=== PATIENT | male | born 2000 | race Caucasian/White ===

== ENCOUNTER 2019-12-29 10:01 | Emergency (ER) | payer OTHER, SELFPAY ==
[2019-12-29 10:52] VITALS: BP 146/73; PULSE 75; RESP 16; TEMP 37.2; O2SAT 97; BMI 23.7
--- NOTE | 2019-12-29 11:22 | ED.URI ---
HPI - URI/Sore Throat General Chief Complaint: Upper Respiratory Symptoms Stated Complaint: covid symptoms [phone] Time Seen by Provider: 12/29/19 11:17 Source: patient Mode of arrival: ambulatory Limitations: no limitations History of Present Illness HPI Narrative: Nasal congestion, cough, subjective fevers x 3 days. Exposed to COVID + patient 4 days ago MD elicited complaint: fever, cough and nasal congestion Onset (ago): day(s) Consistency: constant Severity: mild Description of mucous: clear Able to tolerate fluids by mouth: Yes Exacerbating factors: nothing Context: sick contacts (COVID + exposure ) Associated symptoms: fever, chills, nasal congestion and cough Treatments prior to arrival: none Related Data Allergies Allergy/AdvReac Type Severity Reaction Status Date / Time No Known Allergies Allergy Unverified 12/11/19 16:51 [No Known Allergies*] Review of Systems Review of Systems: Yes all other systems are reviewed and are negative Constitutional: Constitutional: Reports chills, Reports fever(s), Denies headache(s) and Denies weakness Eyes: Eyes: Reports no additional eye complaints and Denies change in vision ENT: Reports system reviewed and no additional complaints, except as documented, Denies headache(s) and Reports nasal congestion Cardiovascular: Cardiovascular: Reports no additional cardiovascular complaints, Denies chest pain, Denies leg edema and Denies dyspnea Respiratory: Respiratory: Reports no additional respiratory complaints, Reports cough and Denies dyspnea Gastrointestinal: Gastrointestinal: Reports no additional gastrointestinal complaints, Denies abdominal pain, Denies diarrhea, Denies nausea and Denies vomiting Genitourinary: Genitourinary: Reports no additional male genitourinary complaints Musculoskeletal: Musculoskeletal: Reports no additional musculoskeletal complaints, Denies arthralgias, Denies joint swelling and Denies tingling Integumentary/Breasts: Skin/Breast: Reports system reviewed and no additional complaints, except as docu and Denies rash Neurologic: Reports system reviewed and no additional complaints, except as documented, Denies Abnormal speech present, Denies headache(s), Denies focal weakness, Denies Sensory deficit (Neuro), Denies tingling, Denies paresthesias and Denies weakness PMFSH Past Medical History Attestation statement: The following information was validated with the patient. Source: obtained from family Medical History Asthma Collar bone fracture Social History Social History Alcohol intake: never Smoking Status: Never smoker Use of substances other than those prescribed or required for medical reasons: No Advance Directives: No Advance Directives Information Provided: No Physical Exam Vital Signs and I&O and Narrative: Vital Signs and I&O: Vital Signs Temp 99.0 F 12/29/19 10:52 Pulse 75 12/29/19 10:52 Resp 16 12/29/19 10:52 BP 146/73 H 12/29/19 10:52 Pulse Ox 97 12/29/19 10:52 Intake & Output 12/28/19 12/29/19 12/29/19 18:59 06:59 18:59 Weight 81.647 kg Body Mass Index 23.7 Const: General: cooperative, healthy appearing, comfortable and no acute distress Orientation/consciousness: patient oriented x3 HENMT: Head: Yes normal to inspection Ears: hearing grossly normal bilaterally General nose exam: Normal external nose present Face and sinus: Yes normal facial exam Mouth: Normal oral and palatal mucosa present Throat: Yes posterior oropharynx normal Eyes: General: appearance normal, both eyes and all related structures Pupils: Equal, round and reactive pupils present Neck: Neck: Yes normal visual inspection Chest: Chest palpation & inspection: normal inspection of the chest Resp: Effort & Inspection: normal respiratory effort Auscultation: clear to auscultation bilaterally Cardio: Palpation: normal PMI Rate: regular rate Rhythm: regular rhythm GI: Inspection: Yes normal to inspection Palpation (GI): Soft to palpation and nontender Back/Spine/Pelvis: Thoracic/Lumbar Spine: thoracic and lumbar spine normal to inspection Skin: General skin exam: no rashes or lesions noted Neuro: General: patient oriented x3 Cranial nerves: Yes Equal, round and reactive pupils present Cognition (Neuro): normal cognition Speech: No Abnormal speech present Gait exam (Neuro): Normal gait present Motor exam (neuro): 5/5 motor strength present throughout Sensory Exam: No Sensory deficit (Neuro) Extrem: General: Yes normal to inspection MDM - URI/Sore Throat MDM Narrative Medical decision making narrative: exam c/w with viral syndrome. Had covid exposure so COVID testing sent. Well appearing, stable vital signs. Reviewed worrisome signs/symptoms with patient and when to return to ED. comfortable with discharge home Discharge Plan Discharge Clinical Impression: Viral infection Patient Disposition: Home, Self-Care Instructions: Viral Syndrome (ED) Additional Instructions: We will call you in 1-2 days with your test results Motrin or Tylenol if able as needed for pain or fever Referrals: Physician,Unknown [Primary Care Provider] - 5 days Interventions: ED Discharge Assessment Last Done: 12/29/19 11:48 Discharge Date/Time: 12/29/19 11:49
== END 2019-12-29 11:49 | disposition home or self-care (01) ==
PROVIDERS: Nurse Practitioner Family; Emergency Provider Internal Medicine
DX: B34.9 Viral infection, unspecified (principal); R05 Cough; Z20.828 Contact with and (suspected) exposure to other viral communicable diseases
CPT/HCPCS: 36415; 87635; 99283

== ENCOUNTER 2020-06-11 11:15 | Outpatient (REF) | payer OTHER, SELFPAY | END 2020-06-11 11:16 | disposition home or self-care (01) | LOC: HO.LAB 11:15 | PROVIDERS: Visit Provider Internal Medicine | DX: Z20.822 Contact with and (suspected) exposure to COVID-19 (principal) | CPT/HCPCS: 36415; C9803; U0003; U0005 ==

== ENCOUNTER 2021-11-10 14:04 | Outpatient (REF) | payer OTHER, SELFPAY ==
[2021-11-10 14:41] LABS: Hematocrit 45.3 % (42.0-52.0); Hemoglobin 16.5 g/dl (14.0-18.0); Mean Corpuscular HGB Conc 36.4 g/dl (31.0-36.0); Mean Corpuscular Hemoglobin 32.3 pg (27.0-33.0); Mean Corpuscular Volume 88.6 fL (80.0-98.0); Mean Platelet Volume 9.3 fL (9.4-12.4); Platelet Count 220 X10*3/uL (160-400); Red Blood Count 5.11 X10*6/uL (4.60-5.80); Red Cell Distribution Width 11.4 % (11.0-16.0); White Blood Count 4.9 X10*3/uL (4.8-10.8)
[2021-11-10 15:37] LABS: Sickle Cell Scr NEGATIVE (NEGATIVE)
== END 2021-11-10 14:05 | disposition home or self-care (01) ==
LOC: HO.LAB 14:04
PROVIDERS: PCP Physician Assistant; Visit Provider Physician Assistant
DX: Z02.5 Encounter for examination for participation in sport (principal); Z13.0 Encounter for screening for diseases of the blood and blood-forming organs and certain disorders involving the immune mechanism
CPT/HCPCS: 36415; 85027; 85660

== ENCOUNTER 2021-12-01 10:07 | Outpatient (REF) | payer OTHER, SELFPAY ==
--- NOTE | ~2021-12-01 | XR_ITS ---
EXAMINATION: XR ANKLE, LEFT CLINICAL INFORMATION: Pain left ankle COMPARISON: None TECHNIQUE: AP, lateral, and mortise views of the left ankle. FINDINGS: The bones and soft tissues are normal. No fracture. Alignment is anatomic. Joint spaces are maintained. No joint effusion. There is mild dorsal distal foot soft tissue swelling. XR/XR ankle LT 2V IMPRESSION: Mild dorsal distal foot soft tissue swelling. No visible acute fracture or dislocation seen.
--- NOTE | ~2021-12-01 | XR_ITS ---
EXAMINATION: XR FOOT, LEFT CLINICAL INFORMATION: Pain left foot COMPARISON: None TECHNIQUE: AP, lateral, and oblique views of the left foot. FINDINGS: The bones and soft tissues are normal. No fracture. Alignment is anatomic. Joint spaces are maintained. XR/XR foot LT 2V IMPRESSION: Unremarkable left foot exam.
== END 2021-12-01 10:08 | disposition home or self-care (01) ==
LOC: HO.XRAY 10:07
PROVIDERS: PCP Physician Assistant; Visit Provider Nurse Practitioner Family
DX: M79.672 Pain in left foot (principal)
CPT/HCPCS: 73600; 73620

== ENCOUNTER 2022-11-10 13:53 | Outpatient (AMB) | payer OTHER, SELFPAY ==
--- NOTE | 2022-11-10 14:14 | MHC.OFFWIV ---
Intake Vital Signs 11/10/22 14:18 Height 6 ft 1 in Weight 195 lb BMI 25.7 BP 122/70 Blood Pressure Location Lt brachial Position Sitting Pulse 78 Pulse Source Pulse Oximeter Temp 98.2 F Temp Source Temporal Artery Scan Pulse Oximetry (%) 98 Oxygen Delivery Method Room Air Intake Visit Reasons: EP Asthma/Sports PE Intake Note: Pt is here requesting a physical to participate in school sports. Patient Tobacco Use Status: Never used Tobacco Allergies No Known Allergies [No Known Allergies*] Allergy (Verified 12/01/21 10:03) Do you need a note to return to daycare/school/sports/work: No HPI HPI Comments History of Present Illness Details This is a 21-year-old male with past medical history significant for mild intermittent asthma who presents to the office today for an asthma check and sports physical. Patient plays soccer at [employer]. He has a history of mild intermittent asthma but he denies any breathing difficulties recently. He is able to perform heavy physical exertion without difficulty but does occasionally utilize his albuterol inhaler prior to heavy physical exertion. He has a rescue albuterol inhaler available to him if he needs it. He denies any chest pain on exertion. He reports a history of a concussion in 2011 but has no post concussive symptoms. He denies any headaches, photophobia/phonophobia, or nausea/vomiting. He denies any recent head injury/trauma. He denies any abdominal pain or nausea/vomiting/diarrhea. He denies any recent illnesses. [facility] Medical History (Updated 01/25/22 @ 12:40 by Carmine Santiago PA-C) Asthma Collar bone fracture Surgical History History of open reduction and internal fixation (ORIF) procedure Family History Father No problems noted. Mother Hypertension Social History Alcohol intake: never Patient Tobacco Use Status: Never used Tobacco Review of Systems Const All systems reviewed & are unremarkable except as noted in HPI and below Reports no additional complaints Eyes Reports no additional complaints ENT Reports no additional complaints Card Reports no additional complaints and Reports dyspnea on exertion (occasional, with heavy exertion) Resp Reports no additional complaints and Reports dyspnea on exertion (occasional, with heavy exertion) GI Reports no additional complaints Reports no additional complaints Musc Reports no additional complaints Skin/Breast Reports system reviewed and no additional complaints, except as documented Neuro Reports no additional complaints and Denies Abnormal speech present Psych Reports no additional complaints Endo Reports no additional complaints Gerald/Lymph Reports no additional complaints Aller/Immun Reports no additional complaints Physical Exam Vital Signs: Last Vital Signs Temp 98.2 F 11/10/22 14:18 Pulse 78 11/10/22 14:18 BP 122/70 11/10/22 14:18 Pulse Ox 98 11/10/22 14:18 Oxygen Delivery Method Room Air 11/10/22 14:18 BMI result Body Mass Index 25.7 Const General: cooperative, healthy appearing, comfortable, no acute distress, well developed, alert, awake and Physically active Nutritional Appearance: well nourished and not obese Orientation/consciousness: patient oriented x3 Limitations: no limitations HEENT Head: Yes normal to inspection, No Vuong's sign and No raccoon eyes Ears: hearing grossly normal bilaterally General nose exam: Normal external nose present Face and sinus: Yes normal facial exam Mouth: Normal oral and palatal mucosa present Throat: Yes posterior oropharynx normal Eyes General: appearance normal, both eyes and all related structures Visual Rai: normal visual rai by confrontation Alignment and Position: alignment normal Periorbital: periorbital findings normal Eyelids: Yes eyelids normal Conjunctivae: conjunctivae normal Sclerae: sclerae normal Pupils: Equal, round and reactive pupils present EOM: EOMs intact bilaterally Direct Ophthalmoscopy: normal light reflex and no photophobia Neck Neck: Yes normal visual inspection, Yes full ROM, Yes no lymphadenopathy and Yes no meningeal signs Thyroid: Thyroid normal Chest Chest palpation & inspection: normal inspection of the chest Resp Effort & Inspection: normal respiratory effort and no respiratory distress Auscultation: clear to auscultation bilaterally, no crackles, no rales, no rhonchi and no wheezes Cardio Jugular venous distension: no JVD Rate: regular rate Rhythm: regular rhythm Heart sounds: no gallops, no murmurs and no rubs Peripheral pulses: Peripheral pulses 2+ throughout GI Inspection: No distended Palpation (GI): Soft to palpation and nontender Auscultation: normal bowel sounds General: Yes no CVA tenderness Back/Spine/Pelvis Back: no CVA tenderness Thoracic/Lumbar Spine: thoracic and lumbar spine normal to inspection Skin General skin exam: no rashes or lesions noted Trauma: no lacerations or abrasions Wounds: no wounds Neuro General: patient oriented x3, gait normal, moves all extremities, Normal light touch and pain sensation, no meningeal signs and deep tendon reflexes 2+ bilaterally Cranial nerves: Yes CN's II-XII intact bilaterally, Yes Facial sensation intact/muscles of mastication intact, Yes Equal, round and reactive pupils present and Yes Bilaterally intact EOM present Cognition (Neuro): normal cognition Speech: No Abnormal speech present Gait exam (Neuro): Normal gait present Motor exam (neuro): 5/5 motor strength present throughout Extrem General: Yes normal to inspection, Yes full ROM and Yes no clubbing, cyanosis or edema Psych Appearance: grossly normal Mental Status: mental status grossly normal Office Procedures EKG Details: Sinus bradycardia, early repolarization. No acute ischemic changes. No ST-T wave changes. EKG is completely unchanged from prior EKG from 11/14. [id number], Complete Assessment & Plan Assessment & Plan (1) Mild intermittent asthma: Code(s): J45.20 - Mild intermittent asthma, uncomplicated Plan: This is a 21-year-old male with past medical history significant for mild intermittent asthma who presented to the office today for an asthma check and sports physical. Comprehensive physical exam was benign and within normal limits. He is in no acute respiratory distress and he has no evidence of abnormal/adventitious breath sounds on physical examination. There are no active concerns other than mild dyspnea with heavy exertion. This is likely in the setting of his mild intermittent asthma. Recommended pre-treating with his albuterol inhaler prior to heavy exertion. Patient should have rescue inhaler available to him if he needs it. If he feels as though this dyspnea is limiting his physical activity, he should follow-up with his primary care physician for possible pulmonology referral. EKG obtained shows sinus bradycardia with early repolarization, which is completely unchanged from prior EKG obtained in 10/2021. Bradycardia and early repolarization are normal variants in young healthy athletes and patient is asymptomatic without chest pain, palpitations, or lightheadedness/dizziness. There are no acute ischemic changes. Patient also reports a history of concussion in 2011. He denies any post concussive symptoms and has not had any recent head trauma or injuries. A comprehensive neurological exam is nonfocal and within normal limits. 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 Patient reports having an albuterol inhaler at home in again this should be available to the patient during heavy exertion. This was discussed in detail with the patient and he verbalized his understanding. Orders: Orders AMB EKG-In Office Today R06.02 - Shortness of breath Coding Level of Care Code Est Pt Level 4 (04732) Diagnoses Mild intermittent asthma J45.20 CPT Codes EKG - CPT: 75734-[id number], Complete ([id number])
[2022-11-10 14:18] VITALS: BP 122/70; PULSE 78; TEMP 36.8; O2SAT 98; BMI 25.7
== END 2022-11-10 15:17 | disposition home or self-care (01) ==
PROVIDERS: PCP Physician Assistant; Visit Provider Physician Assistant Medical
DX: J45.20 Mild intermittent asthma, uncomplicated (principal)
CPT/HCPCS: 93000; 99214

== ENCOUNTER 2023-11-01 14:21 | Outpatient (AMB) | payer OTHER, SELFPAY ==
--- NOTE | 2023-11-01 14:24 | A.OFFPC_ITS ---
Vital Signs 11/01/23 14:31 Height 6 ft 1 in Weight 215 lb 13.321 oz BMI 28.5 BP 136/84 Blood Pressure Location Lt brachial Position Sitting Pulse 84 Pulse Source Pulse Oximeter Pulse Oximetry (%) 97 Oxygen Delivery Method Room Air Intake Visit Reasons: Annual PE Intake Note: The patient is here today for a physical exam and to complete the [facility] PE form for sports clearance. Accompanied by: Self / Same As Patient Allergies No Known Allergies [No Known Allergies*] Allergy (Verified 11/01/23 14:51) Medication List - Last Reconciled 11/01/23 by Carmine Santiago PA-C No Known Home Meds Tobacco use date assessed: 11/01/23 Dental Screening Dental Screen Date: 11/01/23 Did you have a dental visit in the last 12 months?: Yes Did you have a dental problem in the last 6 months where you did not have access to dental care?: No Was dental information given to patient?: Patient has dentist HPI Annual PE HPI Details Patient is a 22-year-old male here today an annual physical. Patient has a past medical history significant for GERD. Otherwise healthy 22-year-old male. Will be starting school at [employer] in the fall. Vaccine : UTD with COVID , Tdap , Considering flu this fall [facility] Medical History Collar bone fracture Asthma Surgical History History of open reduction and internal fixation (ORIF) procedure Family History Father No problems noted. Mother Hypertension Social History (Updated 11/01/23 @ 14:54 by Carmine Santiago PA-C) Housing: House Alcohol intake: current Alcohol intake frequency: a few times a month Alcohol type: beer Patient Tobacco Use Status: Never used Tobacco e-Cigarette/Vaping Use: Never Used service: No Current occupational status: student Cognitive needs: No Hearing needs: No Questionnaire PHQ-9 Over the last 2 weeks, how often have you been bothered by any of the following problems? 1. Little interest or pleasure in doing things: not at all 2. Feeling down, depressed, or hopeless: not at all 3. Trouble falling or staying asleep, or sleeping too much: not at all 4. Feeling tired or having little energy: not at all 5. Poor appetite or overeating: not at all 6. Feeling bad about yourself - or that you are a failure or have let yourself or your family down: not at all 7. Trouble concentrating on things, such as reading the newspaper or watching television: not at all 8. Moving or speaking so slowly that other people could have noticed. Or the opposite - being so fidgety or restless that you have been moving around a lot more than usual: not at all 9. Thoughts that you would be better off or of hurting yourself in some way: not at all Total score: 0 Depression Screening Interpretation: Negative Depression Screening Done: Yes 14886 - PHQ-9 Billing: Yes Source: Developed by Drs. Roger Piña, Latosha Hardin, Wellington Lau and colleagues, with an educational ana from [employer]. Thrive Questionnaire Date Thrive assessed: 11/01/23 I am a: Patient What is your living situation today?: I have a steady place to live Within the past 12 months, did the food you bought not last and you didn't have the money to get more?: Never true Within the past 12 months, did you worry whether your food would run out before you got money to buy more?: Never true Do you have trouble paying for medicines?: No Do you have trouble getting transportation to medical appointments?: No Do you have trouble paying your heating and electricity bill?: No Do you have trouble taking care of your child, family member or friend?: No Do you have trouble with day-to-day activities such as bathing, preparing meals, shopping, managing finances, etc.?: No Are you currently unemployed and looking for a job?: No Are you interested in more education?: No Please select the resources that you would like help with: None Currently or been in a relationship where the following occur: No concerns reported THRIVE Score: 0 AUDIT C Alcohol Use Questionnaire (AUDIT-C) 1. How often do you have a drink containing alcohol?: Monthly or less 2. How many drinks containing alcohol do you have on a typical day when you are drinking?: 3 or 4 3. How often do you have six or more drinks on one occasion?: Never Total Score: 2 RISHI-7 AMB Questionnaire RISHI-7 Date RISHI - 7 assessed: 11/01/23 Feeling nervous, anxious, or on edge: 0 = Not at all Not being able to stop or control worryin = Not at all Worrying too much about different things: 0 = Not at all Trouble relaxin = Not at all Being so restless that it is hard to sit still: 0 = Not at all Becoming easily annoyed or irritable: 0 = Not at all Feeling afraid as if something awful might happen: 0 = Not at all Total RISHI-7 score (0-4 normal; 5-9 mild; 10-14 moderate; 15-21 severe): 0 Source: Developed by Drs. Roger Piña, Latosha Hardin, Wellington Lau and colleagues, with an educational ana from [employer]. RISHI-7 Assessment Billing RISHI-7 Assessment Tool: RISHI-7 Assessment 55284 Review of Systems Const Denies body aches, Denies chills, Denies excessive sweating, Denies fatigue, Denies fever(s) and Denies headache(s) Eyes Denies blurry vision ENT Denies dysphagia, Denies vertigo, Denies dizziness, Denies headache(s), Denies hearing loss and Denies tinnitus Card Denies chest pain, Denies chest pain with activity, Denies syncope, Denies irregular heart rhythm and Denies dyspnea Resp Denies chest congestion, Denies cough, Denies hemoptysis, Denies dyspnea and Denies wheezing GI Denies abdominal pain, Denies melena, Denies hematochezia, Denies coffee ground emesis, Denies dysphagia, Denies diarrhea, Denies nausea and Denies vomiting Denies difficulty urinating, Denies dysuria, Denies urinary frequency, Denies urinary hesitancy and Denies urinary urgency Musc Denies arthralgias, Denies limited range of motion, Denies muscle cramps and Denies muscle weakness Skin/Breast Denies rash and Denies skin ulcer Neuro Denies Abnormal speech present, Denies confusion, Denies vertigo, Denies dizziness, Denies syncope, Denies headache(s), Denies memory loss and Denies seizure-like activity Psych Denies anxiety, Denies confusion, Denies depression, Denies memory loss, Denies panic attacks and Denies paranoia Endo Denies excessive sweating, Denies fatigue, Denies flushing, Denies polydipsia and Denies polyuria Aller/Immun Denies wheezing Physical exam (Primary Care) Vital Signs: Last Vital Signs Pulse 84 11/01/23 14:31 BP 136/84 11/01/23 14:31 Pulse Ox 97 11/01/23 14:31 Oxygen Delivery Method Room Air 11/01/23 14:31 BMI result Body Mass Index 28.5 Tobacco/Smoking Status: Tobacco use Status Tobacco use date assessed 11/01/23 11/01/23 14:42 Patient Tobacco Use Status Never used Tobacco 11/01/23 14:54 e-Cigarette/Vaping Use Never Used 11/01/23 14:54 PHQ-9: PHQ-9 Score PHQ-9: Total score 0 11/01/23 14:54 Depression Screening Interpretation: Negative Thrive Assessment: Date of Thrive Assessment Date Thrive assessed 11/01/23 11/01/23 14:42 Currently or been in a relationship where the following occur: No concerns reported Const General: cooperative, comfortable, no acute distress, alert and awake; No confusion Orientation/consciousness: oriented to person, oriented to place, patient oriented x3 and No confusion HENMT Head: Yes normocephalic Ears: external ears normal and TM's normal bilaterally Face and sinus: No sinus tenderness Mouth: Normal oral and palatal mucosa present and tongue normal Teeth and gingiva: dentition normal and gingiva normal Throat: Yes posterior oropharynx normal, Yes tonsils normal and Yes uvula midline Eyes Conjunctivae: conjunctivae normal Sclerae: sclerae normal Pupils: Equal, round and reactive pupils present EOM: EOMs intact bilaterally Direct Ophthalmoscopy: No no photophobia Neck Neck: Yes no lymphadenopathy, No tender and Yes no JVD Thyroid: Thyroid normal Carotids: no bruits Chest Chest palpation & inspection: no tenderness Resp Effort & Inspection: normal respiratory effort, no audible wheezes, not labored and no stridor Auscultation: no crackles, no rales, no rhonchi and no wheezes Cardio Jugular venous distension: no JVD Rate: regular rate, not bradycardic and not tachycardic Rhythm: regular rhythm Bruits: no carotid bruits Peripheral pulses: Peripheral pulses 2+ throughout GI Inspection: Yes normal to inspection, No abdominal wall ecchymosis and No visible herniation Palpation (GI): Soft to palpation, nontender, no guarding, not rigid and No hepatosplenomegaly present Auscultation: normoactive bowel sounds General: Yes no CVA tenderness Back/Spine/Pelvis Back: no CVA tenderness and No back tenderness Cervical Spine: cervical ROM normal Thoracic/Lumbar Spine: thoracic and lumbar spine normal to inspection, straight leg raise negative bilaterally, No thoraco-lumbar ROM limited and No lumbar spinal tenderness Skin Lesions: no lesions Rashes: no rashes Wounds: no wounds Neuro General: oriented to person, oriented to place, patient oriented x3, CN's II-XI intact bilaterally and No confusion Cranial nerves: Yes Equal, round and reactive pupils present and Yes Normal accommodation reflex present Cognition (Neuro): normal cognition Speech: No Abnormal speech present Gait exam (Neuro): Normal gait present Motor exam (neuro): 5/5 motor strength present throughout Extrem Right upper extremity: full ROM; no cyanosis Left upper extremity: full ROM; no cyanosis Right lower extremity: no edema Left lower extremity: no edema Psych Appearance: grossly normal Mental Status: mental status grossly normal Affect: normal affect Attitude: cooperative Thought process: Normal thought process present Assessment and Plan Assessment & Plan (1) Annual physical exam: Code(s): Z00.00 - Encounter for general adult medical examination without abnormal findings (2) Screening for diabetes mellitus (DM): Code(s): Z13.1 - Encounter for screening for diabetes mellitus Orders: Orders Comprehensive [place]. Panel Fast Today Z13.1 - Encounter for screening for diabetes mellitus Complete Blood Count no Diff Today Z13.1 - Encounter for screening for diabetes mellitus Coding Level of Care Code Est Pt Prev Care 18-39y(11477) Diagnoses Annual physical exam Z00.00 Screening for diabetes mellitus (DM) Z13.1 Additional Codes RISHI-7 Assessment Billing - RISHI-7 Assessment Tool: IRSHI-7 Assessment 88225 ([id number])
[2023-11-01 14:31] VITALS: BP 136/84; PULSE 84; O2SAT 97; BMI 28.5
== END 2023-11-01 15:59 | disposition home or self-care (01) ==
PROVIDERS: PCP Physician Assistant; Visit Provider Physician Assistant
DX: Z00.00 Encounter for general adult medical examination without abnormal findings (principal); Z13.1 Encounter for screening for diabetes mellitus
CPT/HCPCS: 99395

== ENCOUNTER 2024-06-26 18:05 | Emergency (ER) | payer OTHER, SELFPAY ==
--- NOTE | ~2024-06-26 | CT_ITS ---
CLINICAL HISTORY: L sided tonsillar swelling CT soft tissue neck with contrast Comparison: None Findings: Left tonsillar edema and hypertrophy noted. Multilocular small fluid collections are identified. Ill-defined fluid densities are also noted. To well-defined fluid collections consistent with abscesses. These measure 1.5 and 1.3 cm. This is in the anterior inferior aspect. Right tonsil is unremarkable. Reactive adenopathy in the neck. Adenoids and epiglottis are within normal limits. There is no prevertebral soft tissue swelling or fluid. Bilateral parotid and submandibular glands unremarkable. No foreign bodies are demonstrated. Visualized upper lungs and sinuses are clear. No acute bony abnormalities demonstrated. Impression: Left tonsillar hypertrophy with small abscesses This document has been electronically signed by: Julius Almaguer MD on 06/26/2024 20:25:05
[2024-06-26 18:23] VITALS: BP 104/79; PULSE 103; RESP 20; TEMP 37.7; O2SAT 95; BMI 26.9
--- NOTE | 2024-06-26 18:23 | ED.GENADULT ---
HPI - General Adult General Chief complaint: General Medical Stated complaint: sore throat [facility] Time Seen by Provider: 06/26/24 18:37 Source: patient, RN notes reviewed and old records reviewed Mode of arrival: ambulatory Limitations: no limitations History of Present Illness ED Provider: Kamran MCCARTY narrative: 23-year-old male who denies past medical history presents for evaluation of sore throat. patient reports that he has had a sore throat since last Sunday. He went to urgent care today and referred to the ER for concerns of peritonsillar abscess the patient has increased pain in the left when compared to the right. He is able to swallow and open his mouth he endorses associated fatigue. Denies any cough, chest pain no other complaints or concerns at this time Related Data Previous Rx's ?Medication ?Instructions ?Recorded amoxicillin 875 mg-potassium 1 tab PO Q12H #20 tabs 06/26/24 clavulanate 125 mg tablet Allergies Allergy/AdvReac Type Severity Reaction Status Date / Time No Known Allergies Allergy Verified 06/26/24 18:26 [No Known Allergies*] Review of Systems Constitutional: Constitutional: Denies body ache(s), Denies chills, Denies fever(s), Reports malaise and Reports weakness Eyes: Eyes: Denies blurry vision and Denies seeing flashes ENT: Reports sore throat Cardiovascular: Cardiovascular: Denies chest pain and Denies dyspnea Respiratory: Respiratory: Denies cough and Denies dyspnea Gastrointestinal: Gastrointestinal: Denies abdominal pain, Denies nausea and Denies vomiting Musculoskeletal: Musculoskeletal: Denies back pain Integumentary/Breasts: Skin/Breast: Denies rash Neurologic: Reports weakness Psychiatric: Psychiatric: Denies anxiety PMFSH Past Medical History Medical History Collar bone fracture Asthma Surgical History History of open reduction and internal fixation (ORIF) procedure Family History Family History Father No problems noted. Mother Hypertension Social History Social History (Updated 11/01/23 @ 14:54 by Carmine Santiago PA-C) Housing: House Alcohol intake: current Alcohol intake frequency: a few times a month Alcohol type: beer Patient Tobacco Use Status: Never used Tobacco e-Cigarette/Vaping Use: Never Used Advance Directives: No Advance Directives Information Provided: No Do you have a plan to hurt others: No Plan service: No Current occupational status: student Cognitive needs: No Hearing needs: No Physical Exam ED Vital Signs: Vital Signs - 24 hr 06/26/24 18:23 06/26/24 22:05 Temperature 99.9 F 99.9 F Pulse Rate 103 H 103 H Respiratory Rate 20 20 Blood Pressure 104/79 104/79 Pulse Oximetry 95 95 Oxygen Delivery Method Room Air Room Air BMI result Body Mass Index 26.9 Const General: healthy appearing, comfortable, no acute distress, alert and awake Nutritional Appearance: well nourished Orientation/consciousness: patient oriented x3 HENMT Other: retropharynx is erythematous, there is fullness to the soft palate on the left. No obvious exudates. Uvula remains midline. There is no trismus Head: Yes normocephalic and Yes atraumatic Eyes Eyelids: Yes eyelids normal Conjunctivae: conjunctivae normal Sclerae: sclerae normal Corneas: corneas normal Pupils: Equal, round and reactive pupils present EOM: EOMs intact bilaterally Neck Neck: Yes full ROM Resp Effort & Inspection: normal respiratory effort, able to speak in complete sentences and not labored Skin General skin exam: elasticity normal Neuro General: patient oriented x3 Cranial nerves: Yes Equal, round and reactive pupils present and Yes Bilaterally intact EOM present Cognition (Neuro): normal cognition Extrem Other: Moving all extremities well without any obvious deformities Course Course Course Narrative: This is a rapid medical exam performed by Joaquin Bradley NP: Additional HPI, ROS, PE not included below will be deferred to primary provider. 06/26/24 18:24 Patient is a 23-year-old male presenting from to rule out [facility]. Patient has had symptoms since Sunday, strep negative. Significant L sided tonsillar swelling in triage, unable to fully open jaw. Managing secretions. Plan: Labs, will need CT Reevaluation(s) Reevaluation #1: Patient's CT scan showed 2 small abscesses in the left anterior soft palate. I discussed risks and benefits of attempting needle aspiration. The patient consents to meal aspiration after discussing risks and benefits. See procedure note. Patient was given Augmentin, dexamethasone IV A simiilar amount was aspirated x 2 Time: 21:31 Medications Administered Discontinued Medications Generic Name Dose Route Start Last Admin Trade Name Calvinq PRN Reason Stop Dose Admin Amoxicillin/Clavulanate Potassium 875 mg 06/26/24 21:31 06/26/24 21:49 Amoxicillin/Potassium Clav 875 Mg Tablet PO 06/26/24 21:32 875 mg ONCE ONE Administration Dexamethasone Sodium Phosphate 6 mg 06/26/24 20:51 06/26/24 21:14 Dexamethasone Sod Phosphate 4 Mg/Ml Vial IVPUSH 06/26/24 20:52 6 mg ONCE ONE Administration Iohexol 100 ml 06/26/24 19:09 06/26/24 19:09 Iohexol 350 Mg/Ml 100 Ml Infus..Btl IV 06/26/24 19:10 60 ml ONCE ONE Administration Lidocaine HCl 15 ml 06/26/24 20:50 06/26/24 21:14 Lidocaine Hcl Viscous 2 % 15 Ml Solution MUCOUS MEM 06/26/24 20:51 15 ml ONCE ONE Administration Lidocaine/Epinephrine 10 ml 06/26/24 20:50 06/26/24 21:16 Lidocaine Hcl 1%/Epi 1:100,000 10 Ml Vial INFILTRATI 06/26/24 20:51 10 ml ONCE ONE Administration Procedures Abscess I/D Site: other (Peritonsillar) Side (if applicable): left Local Anesthetic: lidocaine 1% and with epi Amount of anesthesia used (mL): 2 Technique: needle aspiration Amount of fluid expressed (mL): 3 Sent for culture/gram staining?: No Irrigation: No Packing used?: none Medical Decision Making Medical Decision Making [facility] Narrative: 23-year-old male presents for evaluation of a sore throat and rule out peritonsillar abscess sent from urgent care. He does have some fullness to the soft palate. Uvula remains midline, airway is widely patent, there is no trismus. He was found to be strep positive. Plan for labs, CT scan of the neck with soft tissue to evaluate for drainable abscess. Differential Diagnosis Differential Diagnoses: The differential diagnosis associated with the presentation includes peritonsillar abscess Strep pharyngitis Upper respiratory infection Pharyngitis Admission/Observation Consideration of admission/observation: Escalation of care including admission/observation considered Lab Data [facility] Lab Attestation statement: I reviewed the patient's lab results. Mild leukocytosis with a left-sided shift. No significant chemistry abnormalities 06/26/24 18:36 06/26/24 18:36 Labs: Lab Results 06/26/24 Range/Units 18:36 WBC 13.6 H (4.8-10.8) X10*3/uL RBC 4.49 L (4.60-5.80) X10*6/uL Hgb 14.3 (14.0-18.0) g/dl Hct 39.6 L (42.0-52.0) % MCV 88.2 (80.0-98.0) fL MCH 31.8 (27.0-33.0) pg MCHC 36.1 H (31.0-36.0) g/dl RDW 11.5 (11.0-16.0) % Plt Count 214 (160-400) X10*3/uL MPV 8.9 L (9.4-12.4) fL Immature Gran % (Auto) 0.5 H (0.0-0.4) % Neut % (Auto) 84.3 H (45-73) % Lymph % (Auto) 7.6 L (20-40) % [place] % (Auto) 6.8 (2-11) % Eos % (Auto) 0.4 (0-4) % Baso % (Auto) 0.4 (0-2) % Lymph # (Auto) 1.0 L (1.2-4.9) X10*3/uL [place] # (Auto) 0.9 (0.1-1.2) X10*3/uL Eos # (Auto) 0.1 (0.0-0.4) X10*3/uL Baso # (Auto) 0.1 (0.0-0.2) X10*3/uL Abs Immat Gran (auto) 0.07 H (0.00-0.03) X10*3/uL Absolute Neuts (auto) 11.5 H (2.0-8.3) x10*3/uL Absolute Nucleated RBC 0.000 (0.0-0.012) X10*3/uL Nucleated RBC % (auto) 0.0 (0.0-0.2) /100WBC Sodium 139 (135-145) mmol/L Potassium 4.1 (3.3-5.1) mmol/L Chloride 101 (96-108) mmol/L Carbon Dioxide 27 (22-29) mmol/L Anion Gap 15 (12-20) BUN 17 H (9-16) mg/dL Creatinine 1.00 (0.5-1.4) mg/dL Estim Creat Clear Calc 132.4 Estimated GFR > 60 Random Glucose 103 (60-115) mg/dL Calcium 9.5 (8.4-10.2) mg/dL Total Bilirubin 0.9 (0.0-1.0) mg/dL AST 32 (5-37) U/L ALT 51 H (0-40) U/L Alkaline Phosphatase 112 (39-117) U/L Total Protein 7.7 (6.5-8.0) g/dL Albumin 4.3 (3.5-5.0) g/dL Influenza Type A (PCR) NEGATIVE (Negative) Influenza Type B (PCR) NEGATIVE (Negative) RSV RNA Qual (PCR) NEGATIVE (Negative) SARS-CoV-2 RNA (RT-PCR) NEGATIVE (Negative) S. pyogenes GrpA BRITTANY Positive A (Negative) Independent Interpretation I performed an independent interpretation of an: CT Scan Interpretation: Agree with Radiology interpretation Radiology Impression Discussion of test interpretation with radiology: I have reviewed the radiologist's reading. Radiologist Impression: Findings: Left tonsillar edema and hypertrophy noted. Multilocular small fluid collections are identified. Ill-defined fluid densities are also noted. To well-defined fluid collections consistent with abscesses. These measure 1.5 and 1.3 cm. This is in the anterior inferior aspect. Right tonsil is unremarkable. Reactive adenopathy in the neck. Adenoids and epiglottis are within normal limits. There is no prevertebral soft tissue swelling or fluid. Bilateral parotid and submandibular glands unremarkable. No foreign bodies are demonstrated. Visualized upper lungs and sinuses are clear. No acute bony abnormalities demonstrated. Impression: Left tonsillar hypertrophy with small abscesses This document has been electronically signed by: Julius Almaguer MD on 06/26/2024 20:25:05 Discharge Plan Discharge Clinical Impression: Acute streptococcal pharyngitis, Abscess, peritonsillar Patient Disposition: Home, Self-Care Instructions: Peritonsillar Abscess (ED), Strep Throat (ED) Additional Instructions: You have strep pharyngitis with a small peritonsillar abscess. This was drained with a needle aspiration Take Augmentin twice daily for the next 10 days Return sooner for new or worsening symptoms, especially if you are unable to swallow, open your mouth or have trouble breathing Follow-up with ear nose and throat specialty, Dr Martinez, call tomorrow to make an appointment Prescriptions: New amoxicillin-pot clavulanate 875-125 mg tablet 1 tab PO Q12H Qty: 20 0RF Referrals: Jared Martinez [Physician] - (peritonsillar abscess, drained in ED) Interventions: ED Discharge Assessment Last Done: 06/26/24 22:05 Discharge Date/Time: 06/26/24 22:06 Print Language: Macedonian
--- NOTE | 2024-06-26 18:37 | PC.NURSE ---
Pt placed on PIT chair, IV placed for CT scan on patient. CT made aware of patient location in order to complete scan.
[2024-06-26 18:40] LABS: MANUAL DIFF FLAG NO
[2024-06-26 18:46] LABS: IDNOW Serial# 55D5AD1C; Strep A Nucleic Acid Positive (Negative)
[2024-06-26 18:49] LABS: Basophils Absolute Auto 0.1 X10*3/uL (0.0-0.2); Basophils Percent Auto 0.4 % (0-2); Eosinophils Absolute Auto 0.1 X10*3/uL (0.0-0.4); Eosinophils Percent Auto 0.4 % (0-4); Hematocrit 39.6 % (42.0-52.0); Hemoglobin 14.3 g/dl (14.0-18.0); Imm Gran Abs Auto 0.07 X10*3/uL (0.00-0.03); Imm Gran Pct Auto 0.5 % (0.0-0.4); Lymphocytes Percent Auto 7.6 % (20-40); Mean Corpuscular HGB Conc 36.1 g/dl (31.0-36.0); Mean Corpuscular Hemoglobin 31.8 pg (27.0-33.0); Mean Corpuscular Volume 88.2 fL (80.0-98.0); Mean Platelet Volume 8.9 fL (9.4-12.4); Monocytes Absolute Auto 0.9 X10*3/uL (0.1-1.2); Monocytes Percent Auto 6.8 % (2-11); Neutrophils Absolute Auto 11.5 x10*3/uL (2.0-8.3); Neutrophils Percent Auto 84.3 % (45-73); Platelet Count 214 X10*3/uL (160-400); Red Blood Count 4.49 X10*6/uL (4.60-5.80); Red Cell Distribution Width 11.5 % (11.0-16.0); White Blood Count 13.6 X10*3/uL (4.8-10.8)
[2024-06-26 18:54] LABS: Alanine Aminotransferase 51 U/L (0-40); Albumin Level 4.3 g/dL (3.5-5.0); Alkaline Phosphatase 112 U/L (39-117); Anion Gap 15 (12-20); Aspartate Amino Transferase 32 U/L (5-37); Bilirubin Total 0.9 mg/dL (0.0-1.0); Blood Urea Nitrogen 17 mg/dL (9-16); Calcium 9.5 mg/dL (8.4-10.2); Carbon Dioxide 27 mmol/L (22-29); Chloride 101 mmol/L (96-108); Creatinine Clr Calc Pharmacy 132.4; Estimated Glomerular Filt Rate > 60; Glucose Random 103 mg/dL (60-115); Potassium 4.1 mmol/L (3.3-5.1); Sodium 139 mmol/L (135-145); Total Protein 7.7 g/dL (6.5-8.0)
[2024-06-26] MEDS: iohexoL 350 MG/ML 100 ML INFUS..BTL IV (19:09)
[2024-06-26 19:17] LABS: Influenza A PCR NEGATIVE (Negative); Influenza B PCR NEGATIVE (Negative); Resp Syncy Virus RNA Qual PCR NEGATIVE (Negative); SARS COV2 PCR INHOUSE NEGATIVE (Negative)
[2024-06-26] MEDS: Lidocaine HCl Viscous 2 % 15 ML SOLUTION MUCOUS MEM (21:14)
[2024-06-26] MEDS: dexAMETHasone sod phosphate 4 MG/ML VIAL 6 MG IVPUSH (21:14)
[2024-06-26] MEDS: Lidocaine HCl 1%/Epi 1:100,000 10 ML VIAL INFILTRATI (21:16)
[2024-06-26] MEDS: Amoxicillin/Potassium Clav 875 MG TABLET PO (21:49)
[2024-06-26 22:05] VITALS: BP 104/79; PULSE 103; RESP 20; TEMP 37.7; O2SAT 95
== END 2024-06-26 22:06 | disposition home or self-care (01) ==
PROVIDERS: Registered Nurse Emergency; Emergency Provider Emergency Medicine Emergency Medical Services; PCP Physician Assistant
DX: J36 Peritonsillar abscess (principal); J02.0 Streptococcal pharyngitis; Z03.818 Encounter for observation for suspected exposure to other biological agents ruled out; J45.909 Unspecified asthma, uncomplicated
CPT/HCPCS: 0241U; 10160; 70491; 80053; 85025; 87651; 96374; 99284; J1100; J2004; Q9967

== ENCOUNTER → 2024-06-26 18:27 | Outpatient (BNV) | payer OTHER, SELFPAY | PROVIDERS: Emergency Provider Emergency Medicine Emergency Medical Services; PCP Physician Assistant; Visit Provider Radiology Diagnostic Radiology | DX: J35.1 Hypertrophy of tonsils (principal); J36 Peritonsillar abscess | CPT/HCPCS: 70491 ==